=== PATIENT | female | born 1965 | race African-American/Black ===

== ENCOUNTER 2017-06-08 16:36 | Observation (INO) ==
[2017-06-08] MEDS ORDERED: SODIUM CHLORIDE 0.9% 1,000 ML IV STA (17:18)
[2017-06-08] MEDS ORDERED: methylPREDNISolone SOD SUC 125 MG/2 ML VIAL IV STA (17:19)
[2017-06-08] MEDS ORDERED: ALBUTEROL/IPRATROPIUM 3 ML NEB RESP TX STA ×2 (17:19→20:35)
[2017-06-08] MEDS ORDERED: methylPREDNISolone SOD SUC 125 MG/2 ML VIAL ONE (17:36)
[2017-06-08 19:24] LABS: Calcium 9.5 MG/DL (8.5-10.1)
[2017-06-08] MEDS ORDERED: ACETAMINOPHEN 325 MG TABLET PO PRN (22:18)
[2017-06-08] MEDS ORDERED: ONDANSETRON 4 MG/2 ML VIAL IV PRN (22:18)
[2017-06-08] MEDS ORDERED: ALBUTEROL 2.5 MG/3 ML NEB RESP TX PRN (22:23)
[2017-06-08] MEDS ORDERED: MARAVIROC 300 MG PO SCH (22:30)
[2017-06-09] MEDS: FAMOTIDINE 20 MG TABLET PO SCH ×2 (00:42→21:02)
[2017-06-09] MEDS: MIRTAZAPINE 15 MG TABLET PO SCH ×2 (00:42→21:03)
[2017-06-09] MEDS: PRIMIDONE 50 MG TABLET PO SCH ×3 (00:42→21:03)
[2017-06-09] MEDS: QUEtiapine 100 MG TABLET PO SCH ×2 (00:42→21:02)
[2017-06-09 01:10] LABS: Hematocrit 35.7 VOL% (35.7-47.0); Hematocrit 36.8 VOL% (35.7-47.0); Hemoglobin 11.9 GM/DL (12.0-16.0); Hemoglobin 12.2 GM/DL (12.0-16.0); Immature Granulocytes % 0.2 %; Immature Granulocytes % 0.4 %; Immature Granulocytes Absolute 0.01 #; Immature Granulocytes Absolute 0.02 #; Lymphocytes # 0.8 10*3/uL (1.4-4.0); Lymphocytes # 0.9 10*3/uL (1.4-4.0); Lymphocytes % 16.9 % (21.3-54.2); Lymphocytes % 18.9 % (21.3-54.2); Mean Corpuscular HGB Conc 33.2 GM/DL (32-36); Mean Corpuscular HGB Conc 33.3 GM/DL (32-36); Mean Corpuscular Hemoglobin 28 PG (27-34); Mean Corpuscular Hemoglobin 29 PG (27-34); Mean Corpuscular Volume 85.8 FL (87-102); Mean Platelet Volume 9.3 FL (9.6-12.0); Mean Platelet Volume 9.4 FL (9.6-12.0); Monocytes % 0.7 % (1.7-12.7); Monocytes % 0.8 % (1.7-12.7); Neutrophils # 3.6 10*3/uL (1.4-7.4); Neutrophils # 3.9 10*3/uL (1.4-7.4); Neutrophils % 82.1 % (38.7-73.9); Platelet Count 380 T/CUMM (130-400); Platelet Count 394 T/CUMM (130-400); Red Blood Count 4.16 MC/CUMM (3.8-5.5); Red Blood Count 4.29 MC/CUMM (3.8-5.5); Red Cell Distribution Width 14.1 % (9.3-17.3); Red Cell Distribution Width 14.3 % (9.3-17.3); White Blood Count 4.5 T/CUMM (4-12); White Blood Count 4.7 T/CUMM (4-12)
[2017-06-09] MEDS: ALBUTEROL/IPRATROPIUM 3 ML NEB RESP TX SCH ×4 (01:16→20:33)
[2017-06-09 01:29] LABS: Calcium 9.3 MG/DL (8.5-10.1); Osmolality,Calculated 274.8 MOS/KG (273-304); Potassium 4.1 MMOL/L (3.5-5.1)
[2017-06-09] MEDS: methylPREDNISolone SOD SUC 40 MG/1 ML VIAL IV SCH ×3 (04:02→21:00)
[2017-06-09] MEDS ORDERED: INFLUENZA VIRUS VACCINE 0.5 ML SYRINGE IM ONE (05:50)
[2017-06-09] MEDS ORDERED: PNEUMOCOCCAL VACCINE (13 VALENT) 0.5 ML SYRINGE IM ONE (05:56)
[2017-06-09] MEDS ORDERED: MELOXICAM 7.5 MG TABLET PO SCH (08:00)
[2017-06-09] MEDS ORDERED: NAPROXEN 500 MG TABLET PO SCH (08:00)
[2017-06-09] MEDS ORDERED: PANTOPRAZOLE 40 MG TABLET PO SCH (09:00)
[2017-06-09] MEDS ORDERED: NON-FORMULARY MEDICATION (Dolutegravir Sodium [Tivicay] 50 MG) PO SCH (09:00)
[2017-06-09] MEDS ORDERED: TENOFOVIR DISOPROXIL FUMARATE 300 MG PO SCH (09:00)
[2017-06-09] MEDS ORDERED: NON-FORMULARY MEDICATION (Fluticasone/Vilanterol [Breo Ellipta 100-25 Mcg Inh] 1 PUFF) INH SCH (09:00)
[2017-06-09] MEDS: GABAPENTIN 300 MG CAPSULE PO SCH ×3 (09:30→21:03)
[2017-06-09] MEDS: ENOXAPARIN 40 MG/0.4 ML SYRINGE SUBCUT SCH (09:30)
[2017-06-09] MEDS: ALLOPURINOL 100 MG TABLET PO SCH (09:30)
[2017-06-09] MEDS: DULoxetine 30 MG CAPSULE PO SCH (09:30)
[2017-06-09] MEDS: OXYBUTYNIN XL 5 MG TABLET PO SCH (09:30)
[2017-06-09] MEDS: amLODIPine 10 MG TABLET PO SCH (09:30)
[2017-06-09] MEDS: NICOTINE 21 MG/24 HR PATCH TRANSDERM SCH (09:31)
[2017-06-10] MEDS: ALBUTEROL/IPRATROPIUM 3 ML NEB RESP TX SCH ×2 (00:25→07:37)
[2017-06-10] MEDS: methylPREDNISolone SOD SUC 40 MG/1 ML VIAL IV SCH (05:27)
[2017-06-10] MEDS: GABAPENTIN 300 MG CAPSULE PO SCH (08:43)
[2017-06-10] MEDS: DULoxetine 30 MG CAPSULE PO SCH (08:43)
[2017-06-10] MEDS: NICOTINE 21 MG/24 HR PATCH TRANSDERM SCH (08:43)
[2017-06-10] MEDS: OXYBUTYNIN XL 5 MG TABLET PO SCH (08:43)
[2017-06-10] MEDS: PRIMIDONE 50 MG TABLET PO SCH (08:43)
[2017-06-10] MEDS: ALLOPURINOL 100 MG TABLET PO SCH (08:43)
[2017-06-10] MEDS: amLODIPine 10 MG TABLET PO SCH (08:43)
[2017-06-10] MEDS: ENOXAPARIN 40 MG/0.4 ML SYRINGE SUBCUT SCH (08:44)
[2017-06-10 12:36] VITALS: BP 166/99
== END 2017-06-10 14:48 | disposition home or self-care (01) ==
LOC: N.EDINP 16:36 → N.ED 16:36 → N.5E 22:54
PROVIDERS: ADMIT Internal Medicine; ATTEND Internal Medicine

== ENCOUNTER 2018-07-05 05:25 | Inpatient (IN) ==
[2018-07-04 14:15] LABS: Basophils % 0.5 % (0.0-0.8); Eosinophils # 0.1 10*3/uL (0.0-0.87); Eosinophils % 1.4 % (0.00-10.9); Hematocrit 34.1 VOL% (35.7-47.0); Immature Granulocytes % 0.2 %; Immature Granulocytes Absolute 0.01 #; Lymphocytes # 1.7 10*3/uL (1.4-4.0); Lymphocytes % 39.5 % (21.3-54.2); Mean Corpuscular HGB Conc 32.3 GM/DL (32-36); Mean Corpuscular Hemoglobin 29 PG (27-34); Mean Corpuscular Volume 89.3 FL (87-102); Mean Platelet Volume 9.2 FL (9.6-12.0); Monocytes # 0.3 10*3/uL (0.11-0.8); Monocytes % 6.3 % (1.7-12.7); Neutrophils # 2.2 10*3/uL (1.4-7.4); Neutrophils % 52.1 % (38.7-73.9); Platelet Count 382 T/CUMM (130-400); Red Blood Count 3.82 MC/CUMM (3.8-5.5); Red Cell Distribution Width 14.9 % (9.3-17.3); White Blood Count 4.3 T/CUMM (4-12)
[2018-07-04 14:24] LABS: PT Patient Result 10.4 SECS; Partial Thromboplastin Time 25.2 SECS (0-40)
[2018-07-04 14:50] LABS: Alanine Aminotransferase 19 U/L (13-56); Albumin 3.5 G/DL (3.4-5.0); Alkaline Phosphatase 128 U/L (45-117); Aspartate Amino Transferase 18 U/L (0-37); Bilirubin,Total < 0.39 MG/DL (0.2-1.0); Blood Urea Nitrogen 7 MG/DL (7-18); Glucose 118 MG/DL (74-106); Osmolality,Calculated 277.4 MOS/KG (273-304); Potassium 3.8 MMOL/L (3.5-5.1); Sodium 140 MMOL/L (136-145); Total Protein 8.1 G/DL (6.4-8.3)
[2018-07-04 16:12] LABS: Apearance,Urine CLEAR (Clear); Bilirubin,Urine Negative (Negative); Blood, Urine Small mg/dL (Negative); Glucose,Urine (UA) Negative (Negative); Ketones,Urine Negative (Negative); Mucus,Urine Occasional /LPF (Occasional); Nitrite,Urine Negative (Negative); Protein,Urine Negative; RBC,Urine 1 /HPF (0-4); Squamous Epithelial Cell,Urine Occasional /HPF (0-10); Urine Color Straw (Yellow); Urine Specific Gravity 1.006 (1.001-1.035); Urine Urobilinogen < 2.0 EU/DL (0.2-1.0); WBC,Urine 35 /HPF (0-6)
[2018-07-05] MEDS ORDERED: ceFAZolin 1,000 MG in SYRINGE 1 EACH IV ONE (06:00)
[2018-07-05] MEDS ORDERED: VANCOMYCIN INJ 1,000 MG in SODIUM CHLORIDE 0.9% 250 ML IV ONE ×2 (06:00→20:00)
[2018-07-05] MEDS ORDERED: VANCOMYCIN 1,000 MG VIAL ONE (08:04)
[2018-07-05] MEDS ORDERED: ceFAZolin 1,000 MG VIAL ONE (08:04)
[2018-07-05] MEDS ORDERED: SCOPOLAMINE 1.5 MG PATCH TRANSDERM ONE (09:03)
[2018-07-05] MEDS ORDERED: DIAZEPAM 5 MG TABLET PO ONE (09:03)
[2018-07-05] MEDS ORDERED: PANTOPRAZOLE 40 MG TABLET PO ONE ×2 (09:03→09:10)
[2018-07-05] MEDS ORDERED: FAMOTIDINE 20 MG TABLET ONE (09:07)
[2018-07-05] MEDS ORDERED: DIAZEPAM 5 MG TABLET ONE (09:07)
[2018-07-05] MEDS ORDERED: ROPIVACAINE 0.5% 30 ML VIAL ONE (09:11)
[2018-07-05] MEDS ORDERED: LIDOCAINE 1% 5 ML VIAL ONE (09:12)
[2018-07-05] MEDS ORDERED: LACTATED RINGERS 1,000 ML IV SCH (10:30)
[2018-07-05] MEDS ORDERED: BACITRACIN OINT 0.9 GM PACK TOP ONE (11:52)
[2018-07-05] MEDS ORDERED: CETIRIZINE 10 MG TABLET PO PRN (11:56)
[2018-07-05] MEDS ORDERED: ALBUTEROL 2.5 MG/3 ML NEB RESP TX PRN (11:56)
[2018-07-05] MEDS ORDERED: oxyCODONE IR 5 MG TABLET PO PRN (11:59)
[2018-07-05] MEDS ORDERED: HYDROmorphone 2 MG/1 ML VIAL IV PRN (11:59)
[2018-07-05] MEDS: MEPERIDINE 25 MG/1 ML VIAL IV PRN ×2 (12:10→12:20)
[2018-07-05] MEDS ORDERED: ONDANSETRON 4 MG/2 ML VIAL IV PRN (12:12)
[2018-07-05] MEDS ORDERED: diphenhydrAMINE 50 MG/1 ML VIAL IV PRN (12:12)
[2018-07-05] MEDS ORDERED: PROMETHAZINE INJ 25 MG in SODIUM CHLORIDE 0.9% 50 ML IV PRN (12:12)
[2018-07-05] MEDS ORDERED: MIDAZOLAM 2 MG/2 ML VIAL ONE (12:15)
[2018-07-05] MEDS ORDERED: fentaNYL 100 MCG/2 ML VIAL ONE (12:15)
[2018-07-05] MEDS ORDERED: TRANEXAMIC ACID 1,000 MG/10 ML VIAL ONE (12:15)
[2018-07-05] MEDS ORDERED: KETAMINE 500 MG/10 ML VIAL ONE (12:15)
[2018-07-05] MEDS ORDERED: PROPOFOL 200 MG/20 ML VIAL IV ONE (12:15)
[2018-07-05] MEDS ORDERED: PHENYLEPHRINE 1 MG/10 ML SYRINGE IV ONE (12:16)
[2018-07-05] MEDS ORDERED: GLYCOPYRROLATE 0.4 MG/2 ML VIAL ONE (12:16)
[2018-07-05] MEDS ORDERED: LACTATED RINGERS 1,000 ML IV ONE (12:16)
[2018-07-05] MEDS: HYDROmorphone 2 MG/1 ML VIAL IV PRN ×4 (12:25→12:40)
[2018-07-05] MEDS ORDERED: HYDROmorphone 2 MG/1 ML VIAL ONE (12:31)
[2018-07-05 12:33] LABS: Apearance,Urine Slightly Hazy (Clear); Bacteria,Urine Occasional /HPF (Few); Bilirubin,Urine Negative (Negative); Blood, Urine Small mg/dL (Negative); Glucose,Urine (UA) Negative (Negative); Ketones,Urine Negative (Negative); Mucus,Urine Many /LPF (Occasional); Nitrite,Urine Positive (Negative); Protein,Urine 100 MG/DL; RBC,Urine 8 /HPF (0-4); Squamous Epithelial Cell,Urine Few /HPF (0-10); Urine Color Yellow (Yellow); Urine Specific Gravity 1.017 (1.001-1.035); Urine Urobilinogen < 2.0 EU/DL (0.2-1.0); WBC,Urine 50 /HPF (0-6)
[2018-07-05] MEDS ORDERED: KETOROLAC 30 MG/1 ML VIAL ONE (12:39)
[2018-07-05] MEDS: LACTATED RINGERS 1,000 ML IV SCH ×2 (12:42→21:07)
[2018-07-05] MEDS: KETOROLAC 30 MG/1 ML VIAL IV SCH ×2 (12:43→18:00)
[2018-07-05] MEDS: GABAPENTIN 300 MG CAPSULE PO SCH ×2 (14:15→21:13)
[2018-07-05] MEDS: ACETAMINOPHEN 500 MG TABLET PO SCH ×2 (16:29→21:15)
[2018-07-05] MEDS: ceFAZolin 2,000 MG in PREMIX 1 EACH IV SCH (16:29)
[2018-07-05] MEDS: THEOPHYLLINE ER 300 MG TABLET PO SCH (18:00)
[2018-07-05] MEDS: QUEtiapine 100 MG TABLET PO SCH (21:13)
[2018-07-05] MEDS: MEMANTINE 10 MG TABLET PO SCH (21:13)
[2018-07-05] MEDS: DULoxetine 30 MG CAPSULE PO SCH (21:13)
[2018-07-05] MEDS: CARVEDILOL 12.5 MG TABLET PO SCH (21:13)
[2018-07-05] MEDS: DOCUSATE SODIUM 100 MG CAPSULE PO SCH (21:14)
[2018-07-05] MEDS: DONEPEZIL 10 MG TABLET PO SCH (21:14)
[2018-07-05] MEDS: CITALOPRAM 20 MG TABLET PO SCH (21:14)
[2018-07-05] MEDS: MARAVIROC 300 MG PO SCH (21:19)
[2018-07-06] MEDS: ceFAZolin 2,000 MG in PREMIX 1 EACH IV SCH (00:24)
[2018-07-06] MEDS: KETOROLAC 30 MG/1 ML VIAL IV SCH ×2 (00:27→06:25)
[2018-07-06] MEDS: ACETAMINOPHEN 500 MG TABLET PO SCH ×2 (04:12→10:15)
[2018-07-06 05:27] LABS: Basophils % 0.2 % (0.0-0.8); Eosinophils # 0.1 10*3/uL (0.0-0.87); Eosinophils % 2.4 % (0.00-10.9); Hematocrit 28.5 VOL% (35.7-47.0); Immature Granulocytes % 0.2 %; Immature Granulocytes Absolute 0.01 #; Lymphocytes # 1.5 10*3/uL (1.4-4.0); Mean Corpuscular HGB Conc 31.6 GM/DL (32-36); Mean Corpuscular Hemoglobin 29 PG (27-34); Mean Corpuscular Volume 92.5 FL (87-102); Mean Platelet Volume 10.6 FL (9.6-12.0); Monocytes # 0.4 10*3/uL (0.11-0.8); Monocytes % 7.5 % (1.7-12.7); Neutrophils % 59.7 % (38.7-73.9); Platelet Count 286 T/CUMM (130-400); Red Blood Count 3.08 MC/CUMM (3.8-5.5); Red Cell Distribution Width 14.9 % (9.3-17.3)
[2018-07-06 05:35] LABS: Calcium 8.2 MG/DL (8.5-10.1); Potassium 3.7 MMOL/L (3.5-5.1)
[2018-07-06] MEDS: FONDAPARINUX 2.5 MG/0.5 ML SYRINGE SUBCUT SCH (06:28)
[2018-07-06] MEDS: IPRATROPIUM 500 MCG/2.5 ML NEB RESP TX SCH ×4 (07:16→19:35)
[2018-07-06] MEDS: ISOSORBIDE MONONITRATE 30 MG TABLET PO SCH (08:17)
[2018-07-06] MEDS: DOCUSATE SODIUM 100 MG CAPSULE PO SCH ×2 (08:17→20:28)
[2018-07-06] MEDS: GABAPENTIN 300 MG CAPSULE PO SCH ×3 (08:17→20:32)
[2018-07-06] MEDS: THEOPHYLLINE ER 300 MG TABLET PO SCH ×2 (08:18→16:52)
[2018-07-06] MEDS: MEMANTINE 10 MG TABLET PO SCH ×2 (08:18→20:32)
[2018-07-06] MEDS: MONTELUKAST 10 MG TABLET PO SCH (08:18)
[2018-07-06] MEDS: CARVEDILOL 12.5 MG TABLET PO SCH ×2 (08:18→20:31)
[2018-07-06] MEDS: hydroCHLOROthiazide 12.5 MG CAPSULE PO SCH (08:18)
[2018-07-06] MEDS: NON-FORMULARY MEDICATION (Dolutegravir Sodium [Tivicay] 50 MG) PO SCH (08:23)
[2018-07-06] MEDS: MARAVIROC 300 MG PO SCH ×2 (08:23→21:24)
[2018-07-06] MEDS: NON-FORMULARY MEDICATION (Fluticasone/Vilanterol [Breo Ellipta 100-25 Mcg Inh] 1 PUFF) INH SCH (08:27)
[2018-07-06] MEDS: amLODIPine 10 MG TABLET PO SCH (08:31)
[2018-07-06] MEDS: CIPROFLOXACIN 500 MG TABLET PO SCH ×2 (08:31→20:32)
[2018-07-06] MEDS: TENOFOVIR DISOPROXIL FUMARATE 300 MG PO SCH (09:14)
[2018-07-06] MEDS: oxyCODONE IR 5 MG TABLET PO PRN ×2 (11:24→20:36)
[2018-07-06] MEDS: ONDANSETRON 4 MG/2 ML VIAL IV PRN ×3 (11:52→21:15)
[2018-07-06] MEDS: HYDROmorphone 2 MG/1 ML VIAL IV PRN ×3 (14:21→23:29)
[2018-07-06] MEDS: DULoxetine 30 MG CAPSULE PO SCH (20:28)
[2018-07-06] MEDS: DONEPEZIL 10 MG TABLET PO SCH (20:28)
[2018-07-06] MEDS: CITALOPRAM 20 MG TABLET PO SCH (20:28)
[2018-07-06] MEDS: QUEtiapine 100 MG TABLET PO SCH (20:29)
[2018-07-06] MEDS: diphenhydrAMINE CAP 25 MG CAPSULE PO PRN (20:31)
[2018-07-07] MEDS: oxyCODONE IR 5 MG TABLET PO PRN ×5 (03:57→21:45)
[2018-07-07 04:41] LABS: Basophils % 0.3 % (0.0-0.8); Eosinophils # 0.1 10*3/uL (0.0-0.87); Eosinophils % 1.9 % (0.00-10.9); Hematocrit 27.6 VOL% (35.7-47.0); Hemoglobin 8.9 GM/DL (12.0-16.0); Immature Granulocytes % 1.1 %; Immature Granulocytes Absolute 0.07 #; Lymphocytes # 1.7 10*3/uL (1.4-4.0); Lymphocytes % 26.9 % (21.3-54.2); Mean Corpuscular HGB Conc 32.2 GM/DL (32-36); Mean Corpuscular Hemoglobin 29 PG (27-34); Mean Corpuscular Volume 90.8 FL (87-102); Mean Platelet Volume 9.5 FL (9.6-12.0); Monocytes # 0.3 10*3/uL (0.11-0.8); Monocytes % 5.2 % (1.7-12.7); Neutrophils # 4.1 10*3/uL (1.4-7.4); Neutrophils % 64.6 % (38.7-73.9); Platelet Count 291 T/CUMM (130-400); Red Blood Count 3.04 MC/CUMM (3.8-5.5); Red Cell Distribution Width 14.6 % (9.3-17.3); White Blood Count 6.4 T/CUMM (4-12)
[2018-07-07] MEDS: FONDAPARINUX 2.5 MG/0.5 ML SYRINGE SUBCUT SCH (06:30)
[2018-07-07] MEDS: IPRATROPIUM 500 MCG/2.5 ML NEB RESP TX SCH ×4 (07:01→19:20)
[2018-07-07] MEDS ORDERED: BENZOCAINE/MENTHOL LOZENGE 18/BOX PO PRN (07:33)
[2018-07-07] MEDS: THEOPHYLLINE ER 300 MG TABLET PO SCH ×2 (08:27→17:27)
[2018-07-07] MEDS: CIPROFLOXACIN 500 MG TABLET PO SCH ×2 (08:28→21:46)
[2018-07-07] MEDS: DOCUSATE SODIUM 100 MG CAPSULE PO SCH ×2 (08:28→21:47)
[2018-07-07] MEDS: CARVEDILOL 12.5 MG TABLET PO SCH ×2 (08:30→21:49)
[2018-07-07] MEDS: MONTELUKAST 10 MG TABLET PO SCH (08:30)
[2018-07-07] MEDS: hydroCHLOROthiazide 12.5 MG CAPSULE PO SCH (08:30)
[2018-07-07] MEDS: ISOSORBIDE MONONITRATE 30 MG TABLET PO SCH (08:30)
[2018-07-07] MEDS: amLODIPine 10 MG TABLET PO SCH (08:31)
[2018-07-07] MEDS: GABAPENTIN 300 MG CAPSULE PO SCH ×3 (08:32→21:46)
[2018-07-07] MEDS: MEMANTINE 10 MG TABLET PO SCH ×2 (08:32→21:47)
[2018-07-07] MEDS: TENOFOVIR DISOPROXIL FUMARATE 300 MG PO SCH (08:37)
[2018-07-07] MEDS: NON-FORMULARY MEDICATION (Dolutegravir Sodium [Tivicay] 50 MG) PO SCH (08:37)
[2018-07-07] MEDS: NON-FORMULARY MEDICATION (Fluticasone/Vilanterol [Breo Ellipta 100-25 Mcg Inh] 1 PUFF) INH SCH (08:37)
[2018-07-07] MEDS: MARAVIROC 300 MG PO SCH ×2 (08:37→21:47)
[2018-07-07] MEDS: MAGNESIUM HYDROXIDE SUSP 30 ML UDCUP PO PRN ×2 (10:27→21:49)
[2018-07-07] MEDS: CITALOPRAM 20 MG TABLET PO SCH (21:46)
[2018-07-07] MEDS: DONEPEZIL 10 MG TABLET PO SCH (21:46)
[2018-07-07] MEDS: QUEtiapine 100 MG TABLET PO SCH (21:47)
[2018-07-07] MEDS: DULoxetine 30 MG CAPSULE PO SCH (21:47)
[2018-07-08 05:27] LABS: Basophils % 0.2 % (0.0-0.8); Eosinophils # 0.2 10*3/uL (0.0-0.87); Eosinophils % 3.5 % (0.00-10.9); Hemoglobin 9.4 GM/DL (12.0-16.0); Immature Granulocytes % 0.4 %; Immature Granulocytes Absolute 0.02 #; Lymphocytes # 1.8 10*3/uL (1.4-4.0); Lymphocytes % 34.3 % (21.3-54.2); Mean Corpuscular HGB Conc 32.4 GM/DL (32-36); Mean Corpuscular Hemoglobin 29 PG (27-34); Mean Corpuscular Volume 89.8 FL (87-102); Mean Platelet Volume 10.2 FL (9.6-12.0); Monocytes # 0.5 10*3/uL (0.11-0.8); Monocytes % 10.3 % (1.7-12.7); Neutrophils # 2.6 10*3/uL (1.4-7.4); Neutrophils % 51.3 % (38.7-73.9); Platelet Count 302 T/CUMM (130-400); Red Blood Count 3.23 MC/CUMM (3.8-5.5); Red Cell Distribution Width 14.6 % (9.3-17.3); White Blood Count 5.1 T/CUMM (4-12)
[2018-07-08] MEDS: oxyCODONE IR 5 MG TABLET PO PRN ×3 (06:30→21:59)
[2018-07-08] MEDS: FONDAPARINUX 2.5 MG/0.5 ML SYRINGE SUBCUT SCH (06:30)
[2018-07-08] MEDS: IPRATROPIUM 500 MCG/2.5 ML NEB RESP TX SCH ×4 (07:10→23:21)
[2018-07-08] MEDS: MAGNESIUM HYDROXIDE SUSP 30 ML UDCUP PO PRN (09:19)
[2018-07-08] MEDS: CIPROFLOXACIN 500 MG TABLET PO SCH ×2 (09:20→22:00)
[2018-07-08] MEDS: GABAPENTIN 300 MG CAPSULE PO SCH ×3 (09:20→22:00)
[2018-07-08] MEDS: amLODIPine 10 MG TABLET PO SCH (09:20)
[2018-07-08] MEDS: CARVEDILOL 12.5 MG TABLET PO SCH ×2 (09:20→22:00)
[2018-07-08] MEDS: ISOSORBIDE MONONITRATE 30 MG TABLET PO SCH (09:20)
[2018-07-08] MEDS: DOCUSATE SODIUM 100 MG CAPSULE PO SCH ×2 (09:20→21:59)
[2018-07-08] MEDS: hydroCHLOROthiazide 12.5 MG CAPSULE PO SCH (09:20)
[2018-07-08] MEDS: MONTELUKAST 10 MG TABLET PO SCH (09:21)
[2018-07-08] MEDS: THEOPHYLLINE ER 300 MG TABLET PO SCH ×2 (09:21→17:08)
[2018-07-08] MEDS: MEMANTINE 10 MG TABLET PO SCH ×2 (09:21→22:00)
[2018-07-08] MEDS: NON-FORMULARY MEDICATION (Dolutegravir Sodium [Tivicay] 50 MG) PO SCH (09:22)
[2018-07-08] MEDS: NON-FORMULARY MEDICATION (Fluticasone/Vilanterol [Breo Ellipta 100-25 Mcg Inh] 1 PUFF) INH SCH (09:23)
[2018-07-08] MEDS: TENOFOVIR DISOPROXIL FUMARATE 300 MG PO SCH (09:23)
[2018-07-08] MEDS: MARAVIROC 300 MG PO SCH ×2 (09:23→22:11)
[2018-07-08] MEDS ORDERED: BISACODYL 10 MG SUPP RECTAL ONE (10:58)
[2018-07-08] MEDS: QUEtiapine 100 MG TABLET PO SCH (21:58)
[2018-07-08] MEDS: DONEPEZIL 10 MG TABLET PO SCH (21:59)
[2018-07-08] MEDS: DULoxetine 30 MG CAPSULE PO SCH (21:59)
[2018-07-08] MEDS: CITALOPRAM 20 MG TABLET PO SCH (21:59)
[2018-07-08] MEDS: ONDANSETRON 4 MG/2 ML VIAL IV PRN (22:00)
[2018-07-08] MEDS: diphenhydrAMINE CAP 25 MG CAPSULE PO PRN (23:50)
[2018-07-09] MEDS: IPRATROPIUM 500 MCG/2.5 ML NEB RESP TX SCH ×4 (07:29→19:55)
[2018-07-09] MEDS: NON-FORMULARY MEDICATION (Dolutegravir Sodium [Tivicay] 50 MG) PO SCH (08:01)
[2018-07-09] MEDS: NON-FORMULARY MEDICATION (Fluticasone/Vilanterol [Breo Ellipta 100-25 Mcg Inh] 1 PUFF) INH SCH (08:01)
[2018-07-09] MEDS: MARAVIROC 300 MG PO SCH (08:02)
[2018-07-09] MEDS: TENOFOVIR DISOPROXIL FUMARATE 300 MG PO SCH (08:04)
[2018-07-09] MEDS: GABAPENTIN 300 MG CAPSULE PO SCH ×3 (09:24→20:31)
[2018-07-09] MEDS: ISOSORBIDE MONONITRATE 30 MG TABLET PO SCH (09:25)
[2018-07-09] MEDS: MEMANTINE 10 MG TABLET PO SCH ×2 (09:25→20:26)
[2018-07-09] MEDS: CIPROFLOXACIN 500 MG TABLET PO SCH ×2 (09:26→20:28)
[2018-07-09] MEDS: amLODIPine 10 MG TABLET PO SCH (09:27)
[2018-07-09] MEDS: THEOPHYLLINE ER 300 MG TABLET PO SCH ×2 (09:27→16:54)
[2018-07-09] MEDS: MONTELUKAST 10 MG TABLET PO SCH (09:27)
[2018-07-09] MEDS: CARVEDILOL 12.5 MG TABLET PO SCH ×2 (09:28→20:31)
[2018-07-09] MEDS: hydroCHLOROthiazide 12.5 MG CAPSULE PO SCH (09:31)
[2018-07-09] MEDS: DOCUSATE SODIUM 100 MG CAPSULE PO SCH ×2 (09:31→20:26)
[2018-07-09] MEDS: FONDAPARINUX 2.5 MG/0.5 ML SYRINGE SUBCUT SCH (09:33)
[2018-07-09] MEDS: HYDROmorphone 2 MG/1 ML VIAL IV PRN ×3 (10:17→20:28)
[2018-07-09] MEDS: oxyCODONE IR 5 MG TABLET PO PRN ×2 (12:30→23:59)
[2018-07-09] MEDS: DULoxetine 30 MG CAPSULE PO SCH (20:27)
[2018-07-09] MEDS: CITALOPRAM 20 MG TABLET PO SCH (20:27)
[2018-07-09] MEDS: clonazePAM 0.5 MG TABLET PO PRN (20:27)
[2018-07-09] MEDS: QUEtiapine 100 MG TABLET PO SCH (20:28)
[2018-07-09] MEDS: DONEPEZIL 10 MG TABLET PO SCH (20:31)
[2018-07-09] MEDS: ONDANSETRON 4 MG/2 ML VIAL IV PRN (23:57)
[2018-07-10] MEDS: MARAVIROC 300 MG PO SCH ×3 (04:53→21:42)
[2018-07-10] MEDS: diphenhydrAMINE CAP 25 MG CAPSULE PO PRN ×3 (06:35→17:08)
[2018-07-10] MEDS: IPRATROPIUM 500 MCG/2.5 ML NEB RESP TX SCH ×4 (07:25→19:35)
[2018-07-10] MEDS: CIPROFLOXACIN 500 MG TABLET PO SCH ×2 (08:55→21:41)
[2018-07-10] MEDS: DOCUSATE SODIUM 100 MG CAPSULE PO SCH ×2 (08:55→21:41)
[2018-07-10] MEDS: MEMANTINE 10 MG TABLET PO SCH ×2 (08:56→21:41)
[2018-07-10] MEDS: THEOPHYLLINE ER 300 MG TABLET PO SCH ×2 (08:56→16:04)
[2018-07-10] MEDS: hydroCHLOROthiazide 12.5 MG CAPSULE PO SCH (08:56)
[2018-07-10] MEDS: MONTELUKAST 10 MG TABLET PO SCH (08:56)
[2018-07-10] MEDS: FONDAPARINUX 2.5 MG/0.5 ML SYRINGE SUBCUT SCH (08:56)
[2018-07-10] MEDS: amLODIPine 10 MG TABLET PO SCH (08:56)
[2018-07-10] MEDS: ISOSORBIDE MONONITRATE 30 MG TABLET PO SCH (08:56)
[2018-07-10] MEDS: CARVEDILOL 12.5 MG TABLET PO SCH ×2 (09:01→21:41)
[2018-07-10] MEDS: NON-FORMULARY MEDICATION (Dolutegravir Sodium [Tivicay] 50 MG) PO SCH (09:01)
[2018-07-10] MEDS: GABAPENTIN 300 MG CAPSULE PO SCH ×3 (09:02→21:41)
[2018-07-10] MEDS: NON-FORMULARY MEDICATION (Fluticasone/Vilanterol [Breo Ellipta 100-25 Mcg Inh] 1 PUFF) INH SCH (09:02)
[2018-07-10] MEDS: TENOFOVIR DISOPROXIL FUMARATE 300 MG PO SCH (09:03)
[2018-07-10] MEDS: HYDROmorphone 2 MG/1 ML VIAL IV PRN ×2 (11:24→23:29)
[2018-07-10] MEDS: DONEPEZIL 10 MG TABLET PO SCH (21:41)
[2018-07-10] MEDS: CITALOPRAM 20 MG TABLET PO SCH (21:41)
[2018-07-10] MEDS: QUEtiapine 100 MG TABLET PO SCH (21:41)
[2018-07-10] MEDS: DULoxetine 30 MG CAPSULE PO SCH (21:41)
[2018-07-10] MEDS: oxyCODONE IR 5 MG TABLET PO PRN (21:43)
[2018-07-10] MEDS: clonazePAM 0.5 MG TABLET PO PRN (21:46)
[2018-07-11] MEDS: IPRATROPIUM 500 MCG/2.5 ML NEB RESP TX SCH ×2 (07:30→11:00)
[2018-07-11] MEDS: FONDAPARINUX 2.5 MG/0.5 ML SYRINGE SUBCUT SCH (08:14)
[2018-07-11] MEDS: hydroCHLOROthiazide 12.5 MG CAPSULE PO SCH (08:14)
[2018-07-11] MEDS: MONTELUKAST 10 MG TABLET PO SCH (08:14)
[2018-07-11] MEDS: THEOPHYLLINE ER 300 MG TABLET PO SCH (08:14)
[2018-07-11] MEDS: CARVEDILOL 12.5 MG TABLET PO SCH (08:15)
[2018-07-11] MEDS: MEMANTINE 10 MG TABLET PO SCH (08:15)
[2018-07-11] MEDS: amLODIPine 10 MG TABLET PO SCH (08:15)
[2018-07-11] MEDS: GABAPENTIN 300 MG CAPSULE PO SCH ×2 (08:15→15:50)
[2018-07-11] MEDS: DOCUSATE SODIUM 100 MG CAPSULE PO SCH (08:15)
[2018-07-11] MEDS: ISOSORBIDE MONONITRATE 30 MG TABLET PO SCH (08:15)
[2018-07-11] MEDS: NON-FORMULARY MEDICATION (Dolutegravir Sodium [Tivicay] 50 MG) PO SCH (08:16)
[2018-07-11] MEDS: NON-FORMULARY MEDICATION (Fluticasone/Vilanterol [Breo Ellipta 100-25 Mcg Inh] 1 PUFF) INH SCH (08:16)
[2018-07-11] MEDS: MARAVIROC 300 MG PO SCH (08:17)
[2018-07-11] MEDS: TENOFOVIR DISOPROXIL FUMARATE 300 MG PO SCH (08:17)
[2018-07-11] MEDS: oxyCODONE IR 5 MG TABLET PO PRN (08:23)
[2018-07-11] MEDS ORDERED: oxyCODONE IR 5 MG TABLET PO PRN ×2 (11:44)
[2018-07-11] MEDS ORDERED: HYDROmorphone 2 MG/1 ML VIAL IV PRN ×2 (11:45)
[2018-07-11 11:46] VITALS: BP 121/74
[2018-07-11] MEDS: ONDANSETRON 4 MG/2 ML VIAL IV PRN (12:18)
[2018-07-11] MEDS ORDERED: HEPARIN LOCK FLUSH 500 UNIT/5 ML SYRINGE IV ONE (14:20)
== END 2018-07-11 15:51 | DRG 301 ==
LOC: N.OR 05:25 → N.SDSINP 05:26 → N.3E 11:59
PROVIDERS: ADMIT Orthopaedic Surgery; ATTEND Orthopaedic Surgery

== ENCOUNTER 2019-05-06 04:38 | Inpatient (IN) ==
[2019-05-06 05:04] LABS: Basophils % 0.5 % (0.0-0.8); Eosinophils % 0.2 % (0.00-10.9); Hematocrit 38.4 VOL% (35.7-47.0); Hemoglobin 12.6 GM/DL (12.0-16.0); Immature Granulocytes % 0.5 %; Immature Granulocytes Absolute 0.03 #; Lymphocytes # 1.3 10*3/uL (1.4-4.0); Lymphocytes % 21.3 % (21.3-54.2); Mean Corpuscular HGB Conc 32.8 GM/DL (32-36); Mean Corpuscular Volume 90.1 FL (87-102); Monocytes % 10.2 % (1.7-12.7); Neutrophils % 67.3 % (38.7-73.9); Platelet Count 336 T/CUMM (130-400); Red Blood Count 4.26 MC/CUMM (3.8-5.5); Red Cell Distribution Width 15.3 % (9.3-17.3); White Blood Count 6.3 T/CUMM (4-12)
[2019-05-06 05:10] LABS: INR 0.9; PT Patient Result 10.1 SECS (9.6-12.2); Partial Thromboplastin Time 24.8 SECS (20.8-36.0)
[2019-05-06 05:19] LABS: Albumin 4.1 G/DL (3.4-5.0); Bilirubin,Total 0.4 MG/DL (0.2-1.0); Calcium 8.7 MG/DL (8.5-10.1); Osmolality,Calculated 268.2 MOS/KG (273-304); Total Protein 8.4 G/DL (6.4-8.3)
[2019-05-06] MEDS ORDERED: ALBUTEROL 2.5 MG/3 ML NEB RESP TX STA ×2 (06:28→06:45)
[2019-05-06] MEDS ORDERED: methylPREDNISolone SOD SUC 125 MG/2 ML VIAL IV STA (06:29)
[2019-05-06] MEDS ORDERED: LEVOFLOXACIN INJ 500 MG in PREMIX 1 EACH IV STA (06:29)
[2019-05-06] MEDS ORDERED: ACETAMINOPHEN 325 MG TABLET PO PRN (08:53)
[2019-05-06] MEDS ORDERED: BISACODYL 5 MG TABLET PO PRN (08:53)
[2019-05-06] MEDS ORDERED: diphenhydrAMINE CAP 25 MG CAPSULE PO PRN (08:53)
[2019-05-06] MEDS ORDERED: NICOTINE 21 MG/24 HR PATCH TRANSDERM PRN (08:53)
[2019-05-06] MEDS ORDERED: guaiFENesin/DM ER 600-30 MG TABLET PO PRN (08:53)
[2019-05-06] MEDS: ALBUTEROL/IPRATROPIUM 3 ML NEB RESP TX SCH ×3 (11:00→19:42)
[2019-05-06 11:42] LABS: Apearance,Urine CLEAR (Clear); Bilirubin,Urine Negative (Negative); Blood, Urine Small mg/dL (Negative); Glucose,Urine (UA) Negative (Negative); Ketones,Urine Negative (Negative); Nitrite,Urine Negative (Negative); Protein,Urine Negative; RBC,Urine 1 /HPF (0-4); Squamous Epithelial Cell,Urine Occasional /HPF (0-10); Urine Color Straw (Yellow); Urine Specific Gravity 1.004 (1.001-1.035); Urine Urobilinogen < 2.0 EU/DL (0.2-1.0); WBC,Urine <1 /HPF (0-6)
[2019-05-06] MEDS: Bictegrav-Emtricit-Tenofov Ala [Biktarvy] PO SCH (11:47)
[2019-05-06] MEDS: PANTOPRAZOLE 40 MG TABLET PO SCH (11:47)
[2019-05-06] MEDS: DOCUSATE SODIUM 100 MG CAPSULE PO SCH ×2 (11:47→20:40)
[2019-05-06] MEDS: GABAPENTIN 300 MG CAPSULE PO SCH ×3 (11:48→20:33)
[2019-05-06] MEDS: carvediloL 12.5 MG TABLET PO SCH ×2 (11:48→16:15)
[2019-05-06] MEDS: amLODIPine 10 MG TABLET PO SCH (11:48)
[2019-05-06] MEDS: MONTELUKAST 10 MG TABLET PO SCH (11:48)
[2019-05-06] MEDS: AZITHROMYCIN INJ 500 MG in SODIUM CHLORIDE 0.9% 250 ML IV SCH (11:55)
[2019-05-06] MEDS: METHOCARBAMOL 500 MG TABLET PO SCH ×2 (11:55→20:34)
[2019-05-06] MEDS: ONDANSETRON 4 MG/2 ML VIAL IV PRN ×2 (13:05→20:37)
[2019-05-06] MEDS: methylPREDNISolone SOD SUC 40 MG/1 ML VIAL IV SCH ×2 (14:05→22:58)
[2019-05-06] MEDS: THEOPHYLLINE ER 300 MG TABLET PO SCH (16:15)
[2019-05-06] MEDS: DULoxetine 30 MG CAPSULE PO SCH (20:33)
[2019-05-06] MEDS: ENOXAPARIN 40 MG/0.4 ML SYRINGE SUBCUT SCH (20:34)
[2019-05-06] MEDS: CITALOPRAM 20 MG TABLET PO SCH (20:34)
[2019-05-07] MEDS: ALBUTEROL/IPRATROPIUM 3 ML NEB RESP TX SCH ×7 (00:45→23:57)
[2019-05-07 05:09] LABS: Calcium 9.2 MG/DL (8.5-10.1); Osmolality,Calculated 272.1 MOS/KG (273-304)
[2019-05-07] MEDS: methylPREDNISolone SOD SUC 40 MG/1 ML VIAL IV SCH ×3 (06:14→23:05)
[2019-05-07] MEDS ORDERED: LEVOFLOXACIN INJ 500 MG in PREMIX 1 EACH IV SCH (06:30)
[2019-05-07] MEDS: Bictegrav-Emtricit-Tenofov Ala [Biktarvy] PO SCH (09:55)
[2019-05-07] MEDS: METHOCARBAMOL 500 MG TABLET PO SCH ×2 (09:56→20:32)
[2019-05-07] MEDS: MONTELUKAST 10 MG TABLET PO SCH (09:56)
[2019-05-07] MEDS: DOCUSATE SODIUM 100 MG CAPSULE PO SCH ×2 (09:56→20:32)
[2019-05-07] MEDS: THEOPHYLLINE ER 300 MG TABLET PO SCH ×2 (09:56→16:20)
[2019-05-07] MEDS: amLODIPine 10 MG TABLET PO SCH (09:56)
[2019-05-07] MEDS: GABAPENTIN 300 MG CAPSULE PO SCH ×3 (09:56→20:32)
[2019-05-07] MEDS: carvediloL 12.5 MG TABLET PO SCH ×2 (09:57→16:21)
[2019-05-07] MEDS: PANTOPRAZOLE 40 MG TABLET PO SCH (09:57)
[2019-05-07] MEDS: ONDANSETRON 4 MG/2 ML VIAL IV PRN ×2 (11:04→20:34)
[2019-05-07] MEDS: cefTRIAXone 1,000 MG in SYRINGE 1 EACH IV SCH (12:42)
[2019-05-07] MEDS: AZITHROMYCIN INJ 500 MG in SODIUM CHLORIDE 0.9% 250 ML IV SCH (12:43)
[2019-05-07] MEDS: SULFAMETHOX/TRIMETHOPRIM 800-160 MG TABLET PO SCH ×2 (16:21→20:31)
[2019-05-07 18:20] LABS: ABG Base Excess -0.7 MMOL/L (-2.5-2.5); ABG HCO3 23.8 MMOL/L (20-26); ABG Oxygen Saturation 96.3 % (95-100); ABG PCO2 43.6 MM HG (35-48); ABG PH 7.363 (7.35-7.45); ABG PO2 82.1 MM HG (80-95)
[2019-05-07] MEDS: DULoxetine 30 MG CAPSULE PO SCH (20:31)
[2019-05-07] MEDS: CITALOPRAM 20 MG TABLET PO SCH (20:32)
[2019-05-07] MEDS: ALPRAZolam 0.5 MG TABLET PO SCH (20:32)
[2019-05-07] MEDS: ENOXAPARIN 40 MG/0.4 ML SYRINGE SUBCUT SCH (20:32)
[2019-05-08] MEDS: ONDANSETRON 4 MG/2 ML VIAL IV PRN ×3 (05:16→20:42)
[2019-05-08 05:28] LABS: Basophils % 0.2 % (0.0-0.8); Hemoglobin 11.9 GM/DL (12.0-16.0); Immature Granulocytes % 0.6 %; Immature Granulocytes Absolute 0.07 #; Lymphocytes % 16.8 % (21.3-54.2); Mean Corpuscular HGB Conc 32.2 GM/DL (32-36); Mean Corpuscular Volume 91.8 FL (87-102); Mean Platelet Volume 10.2 FL (9.6-12.0); Monocytes % 3.2 % (1.7-12.7); Neutrophils % 79.2 % (38.7-73.9); Platelet Count 339 T/CUMM (130-400); Red Blood Count 4.03 MC/CUMM (3.8-5.5); Red Cell Distribution Width 14.8 % (9.3-17.3); White Blood Count 12.2 T/CUMM (4-12)
[2019-05-08 05:53] LABS: Calcium 9.1 MG/DL (8.5-10.1); Lymphocytes 14 % (20-55); Platelet Estimate Adequate; Segmented Neutrophils 82 % (50-85); Total Cells Counted 100
[2019-05-08 05:54] LABS: Hypochromasia 1+
[2019-05-08] MEDS: methylPREDNISolone SOD SUC 40 MG/1 ML VIAL IV SCH ×3 (06:10→22:43)
[2019-05-08] MEDS: ALBUTEROL/IPRATROPIUM 3 ML NEB RESP TX SCH ×3 (06:55→20:08)
[2019-05-08] MEDS: MONTELUKAST 10 MG TABLET PO SCH (09:02)
[2019-05-08] MEDS: SULFAMETHOX/TRIMETHOPRIM 800-160 MG TABLET PO SCH ×3 (09:02→20:41)
[2019-05-08] MEDS: METHOCARBAMOL 500 MG TABLET PO SCH ×2 (09:02→20:42)
[2019-05-08] MEDS: amLODIPine 10 MG TABLET PO SCH (09:02)
[2019-05-08] MEDS: PANTOPRAZOLE 40 MG TABLET PO SCH (09:02)
[2019-05-08] MEDS: THEOPHYLLINE ER 300 MG TABLET PO SCH ×2 (09:03→16:38)
[2019-05-08] MEDS: GABAPENTIN 300 MG CAPSULE PO SCH ×3 (09:03→20:42)
[2019-05-08] MEDS: DOCUSATE SODIUM 100 MG CAPSULE PO SCH ×2 (09:03→20:42)
[2019-05-08] MEDS: ALPRAZolam 0.5 MG TABLET PO SCH ×2 (09:03→20:41)
[2019-05-08] MEDS: carvediloL 12.5 MG TABLET PO SCH ×2 (09:03→16:38)
[2019-05-08] MEDS: Bictegrav-Emtricit-Tenofov Ala [Biktarvy] PO SCH (09:06)
[2019-05-08] MEDS: cefTRIAXone 1,000 MG in SYRINGE 1 EACH IV SCH (14:24)
[2019-05-08] MEDS: AZITHROMYCIN INJ 500 MG in SODIUM CHLORIDE 0.9% 250 ML IV SCH (14:25)
[2019-05-08] MEDS: hydrALAZINE 25 MG TABLET PO SCH (20:41)
[2019-05-08] MEDS: DULoxetine 30 MG CAPSULE PO SCH (20:41)
[2019-05-08] MEDS: CITALOPRAM 20 MG TABLET PO SCH (20:42)
[2019-05-08] MEDS: ENOXAPARIN 40 MG/0.4 ML SYRINGE SUBCUT SCH (20:42)
[2019-05-09] MEDS: ALBUTEROL/IPRATROPIUM 3 ML NEB RESP TX SCH ×4 (01:20→19:56)
[2019-05-09] MEDS: methylPREDNISolone SOD SUC 40 MG/1 ML VIAL IV SCH ×2 (06:13→16:10)
[2019-05-09] MEDS: SULFAMETHOX/TRIMETHOPRIM 800-160 MG TABLET PO SCH ×3 (08:23→20:27)
[2019-05-09] MEDS: METHOCARBAMOL 500 MG TABLET PO SCH ×2 (08:24→20:26)
[2019-05-09] MEDS: GABAPENTIN 300 MG CAPSULE PO SCH ×3 (08:24→20:27)
[2019-05-09] MEDS: PANTOPRAZOLE 40 MG TABLET PO SCH (08:24)
[2019-05-09] MEDS: carvediloL 12.5 MG TABLET PO SCH ×2 (08:24→16:11)
[2019-05-09] MEDS: hydrALAZINE 25 MG TABLET PO SCH ×2 (08:24→14:21)
[2019-05-09] MEDS: THEOPHYLLINE ER 300 MG TABLET PO SCH ×2 (08:24→16:11)
[2019-05-09] MEDS: DOCUSATE SODIUM 100 MG CAPSULE PO SCH ×2 (08:24→20:26)
[2019-05-09] MEDS: amLODIPine 10 MG TABLET PO SCH (08:24)
[2019-05-09] MEDS: MONTELUKAST 10 MG TABLET PO SCH (08:24)
[2019-05-09] MEDS: ALPRAZolam 0.5 MG TABLET PO SCH ×2 (08:24→20:26)
[2019-05-09] MEDS: Bictegrav-Emtricit-Tenofov Ala [Biktarvy] PO SCH (08:25)
[2019-05-09] MEDS: cefTRIAXone 1,000 MG in SYRINGE 1 EACH IV SCH (08:28)
[2019-05-09] MEDS: AZITHROMYCIN INJ 500 MG in SODIUM CHLORIDE 0.9% 250 ML IV SCH (08:29)
[2019-05-09] MEDS: ONDANSETRON 4 MG/2 ML VIAL IV PRN ×2 (13:02→20:23)
[2019-05-09] MEDS: ENOXAPARIN 40 MG/0.4 ML SYRINGE SUBCUT SCH (20:26)
[2019-05-09] MEDS: DULoxetine 30 MG CAPSULE PO SCH (20:27)
[2019-05-09] MEDS: CITALOPRAM 20 MG TABLET PO SCH (20:28)
[2019-05-10] MEDS: methylPREDNISolone SOD SUC 40 MG/1 ML VIAL IV SCH ×2 (01:58→09:29)
[2019-05-10] MEDS: ALBUTEROL/IPRATROPIUM 3 ML NEB RESP TX SCH ×2 (03:30→07:11)
[2019-05-10] MEDS: hydrALAZINE 25 MG TABLET PO SCH ×2 (05:52→09:19)
[2019-05-10] MEDS: METHOCARBAMOL 500 MG TABLET PO SCH (09:18)
[2019-05-10] MEDS: SULFAMETHOX/TRIMETHOPRIM 800-160 MG TABLET PO SCH (09:18)
[2019-05-10] MEDS: ALPRAZolam 0.5 MG TABLET PO SCH (09:18)
[2019-05-10] MEDS: THEOPHYLLINE ER 300 MG TABLET PO SCH (09:18)
[2019-05-10] MEDS: Bictegrav-Emtricit-Tenofov Ala [Biktarvy] PO SCH (09:19)
[2019-05-10] MEDS: GABAPENTIN 300 MG CAPSULE PO SCH (09:19)
[2019-05-10] MEDS: carvediloL 12.5 MG TABLET PO SCH (09:19)
[2019-05-10] MEDS: DOCUSATE SODIUM 100 MG CAPSULE PO SCH (09:19)
[2019-05-10] MEDS: MONTELUKAST 10 MG TABLET PO SCH (09:19)
[2019-05-10] MEDS: amLODIPine 10 MG TABLET PO SCH (09:19)
[2019-05-10] MEDS: PANTOPRAZOLE 40 MG TABLET PO SCH (09:19)
[2019-05-10] MEDS: cefTRIAXone 1,000 MG in SYRINGE 1 EACH IV SCH (09:25)
[2019-05-10] MEDS: AZITHROMYCIN INJ 500 MG in SODIUM CHLORIDE 0.9% 250 ML IV SCH (09:30)
[2019-05-10] MEDS: ONDANSETRON 4 MG/2 ML VIAL IV PRN (09:54)
[2019-05-10 11:19] VITALS: BP 182/98
[2019-05-10] MEDS ORDERED: FLUCONAZOLE 100 MG TABLET PO SCH (15:00)
[2019-05-10 23:24] LABS: QuantiFERON-Tb Gold Pl Negative (Negative); TB2 Ag Minus Result 0 IU/mL
[2019-05-11 11:39] LABS: % CD4 (T Cells) 29 % (32-64); % CD8 (T Cells) 30 % (11-40)
== END 2019-05-10 12:13 | disposition home or self-care (01) | DRG 140 ==
LOC: N.EDINP 04:38 → N.ED 04:38 → N.EDINP 09:38 → N.2E 10:14
PROVIDERS: ADMIT Internal Medicine; ATTEND Internal Medicine